=== PATIENT | male | born 1950 | race Caucasian/White ===

== ENCOUNTER 2017-11-22 10:06 | Emergency (ER) | payer MEDICARE ==
[~2017-11-22] VITALS: Ht 182.9 cm; Wt 135.4 kg
[~2017-11-22 10:06] MED LIST: ASPIRIN EC325 MG PO; ATORVASTATIN CA20 MG PO; BP MED X 2; CARVEDILOL25 MG PO; CHLORTHALID25 MG PO; CIPROFLOXACN500 MG PO; DARVOCET-N 100100 MG OR; DIABETIC MED; LISINOPRIL40 MG PO; METFORMIN HCL1000 MG PO; METRONIDAZOL500 MG PO
[2017-11-22 12:10] LABS: HEMATOCRIT 36.6 % (39.0-50.0); HEMOGLOBIN 12.2 g/dl (14.0-18.0); IMMATURE GRANULOCYTES 0.3 % (0.0-1.0); MEAN CELL VOLUME 87.4 fL CALC (80.0-100.0); MEAN CORPUSCULAR HGB 29.1 pG CALC (26.0-32.0); MEAN CORPUSCULAR HGB CONC 33.3 g/L CALC (32.0-36.0); NEUT# 7.9 thou/uL (1.82-7.42); RED BLOOD COUNT 4.19 mill/uL (4.70-6.10); RED CELL DISTRI WIDTH 13.1 % (11.5-15.5)
[2017-11-22 12:16] LABS: ALBUMIN 4.1 g/dL (3.2-5.0); ALKALINE PHOSPHATASE 78 u/l (38-126); ANION GAP 19 (6-22 (CALC)); BILIRUBIN, TOTAL 0.3 mg/dL (0.0-1.4); BUN 20 mg/dL (8-23); BUN/CREATININE RATIO 16 (12-20 (CALC)); CARBON DIOXIDE 24 mmol/l (22-30); CHLORIDE 101 mmol/l (95-108); CREATININE 1.3 mg/dL (0.7-1.3); GFR 55 ML/MIN (>=60 (CALC)); GFR FOR AFR.AMER. > 60 ML/MIN (>=60 (CALC)); POTASSIUM 4.3 mmol/l (3.5-5.1); SGOT/AST 18 u/l (19-48); SGPT/ALT 36 u/l (11-66); SODIUM 140 mmol/l (137-146); TOTAL PROTEIN 7.1 g/dL (6.3-8.2)
[2017-11-22] MEDS ORDERED: EC-NAPROSYN500 MG PO (13:29)
[2017-11-22] MEDS ORDERED: FLEXERIL PO (13:29)
[2017-11-22] MEDS ORDERED: PERCOCET 5/325M1 TAB PO (13:29)
[2017-11-22 13:31] VITALS: BP 135/80
== END 2017-11-22 13:35 | disposition home or self-care (01) ==
LOC: ED 10:06
PROVIDERS: Emergency Medicine
DX: M43.6 Torticollis (principal)
CPT/HCPCS: Q9967

== ENCOUNTER 2019-11-25 | Emergency (ER) | payer MEDICARE ==
[~2019-11-25] MED LIST changes: +EC-NAPROSYN500 MG PO; +FLEXERIL PO; +PERCOCET 5/325M1 TAB PO
[2019-11-25] MEDS ORDERED: GLIMEPIRIDE2 MG PO (11:35)
== END 2019-11-25 12:42 | disposition home or self-care (01) ==
DX: S46.812A Strain of other muscles, fascia and tendons at shoulder and upper arm level, left arm, initial encounter (principal); I10 Essential (primary) hypertension; E11.9 Type 2 diabetes mellitus without complications; X50.0XXA Overexertion from strenuous movement or load, initial encounter; Y93.I9 Activity, other involving external motion; Z79.84 Long term (current) use of oral hypoglycemic drugs